=== PATIENT | female | born 1945 | race Caucasian/White ===

== ENCOUNTER 2025-08-07 18:04 | Inpatient (IN) | payer MEDICARE, BC ==
[~2025-08-07] VITALS: Ht 175.3 cm; Wt 60.3 kg
[2025-08-07] MEDS: NITROGLYCERIN OINT 1 GM PACKET TP ONE (18:33)
[2025-08-07 18:37] LABS: PLATELET COUNT (AUTO) 206 K/uL (179-408); RED BLOOD CELL COUNT(AUTO) 4.07 MIL/uL (3.63-4.92); RED CELL DISTRIBUTION WIDTH 12.9 % (12.3-17.7); WHITE BLOOD COUNT (AUTO) 4.8 K/uL (3.8-11.8)
[2025-08-07] MEDS ORDERED: Mobic PO (18:40)
[2025-08-07] MEDS ORDERED: METO-356 PO (18:40)
[2025-08-07] MEDS ORDERED: MULT-1045 PO (18:40)
[2025-08-07] MEDS ORDERED: GABA300C PO ×2 (18:40)
[2025-08-07] MEDS ORDERED: MAGN500C4 PO (18:40)
[2025-08-07] MEDS ORDERED: TRAM50TA2 PO (18:40)
[2025-08-07] MEDS ORDERED: CHOL200026 PO (18:40)
[2025-08-07] MEDS ORDERED: [UNRECOGNIZED DRUG - CODE] SQ (18:40)
[2025-08-07] MEDS ORDERED: PLEC3TAB2 PO (18:40)
[2025-08-07] MEDS ORDERED: DICY-17 PO (18:40)
[2025-08-07] MEDS ORDERED: ASPI-866 PO (18:40)
[2025-08-07 18:47] LABS: CREATININE 0.8 mg/dL (0.6-1.3); SODIUM SERUM 142 mmol/L (136-145); UREA NITROGEN, BLOOD 15 mg/dL (7-18)
[2025-08-07 18:53] LABS: ASPARTATE AMINOTRANSFERASE 21 U/L (15-37); TOTAL PROTEIN, SERUM 6.6 g/dL (6.4-8.2)
[2025-08-07] MEDS ORDERED: GABAPENTIN 300 MG CAPSULE ONE (21:03)
[2025-08-07] MEDS: GABAPENTIN 300 MG CAPSULE PO ONE (21:05)
[2025-08-07 21:12] VITALS: BP 131/63
[2025-08-07] MEDS ORDERED: REMEDY ESSENTIAL ZINC PASTE 113 GM TP PRN (21:15)
[2025-08-07] MEDS ORDERED: ONDANSETRON 4 MG/2 ML VIAL IV PRN (21:15)
[2025-08-07 22:14] VITALS: BP 139/53; TEMP 98; O2SAT 98
[2025-08-07] MEDS: ENOXAPARIN SODIUM 40 MG/0.4 ML DISP.SYRIN SQ SCH (23:36)
[2025-08-08 00:15] VITALS: BP 99/37; TEMP 97.5; O2SAT 98
[2025-08-08 05:22] VITALS: BP 100/47; TEMP 97.8; O2SAT 95
[2025-08-08 06:29] LABS: PLATELET COUNT (AUTO) 194 K/uL (179-408); RED BLOOD CELL COUNT(AUTO) 3.87 MIL/uL (3.63-4.92); RED CELL DISTRIBUTION WIDTH 13.1 % (12.3-17.7); WHITE BLOOD COUNT (AUTO) 5.4 K/uL (3.8-11.8)
[2025-08-08 06:48] LABS: CREATININE 0.8 mg/dL (0.6-1.3); SODIUM SERUM 145 mmol/L (136-145); UREA NITROGEN, BLOOD 13 mg/dL (7-18)
[2025-08-08] MEDS: GABAPENTIN 300 MG CAPSULE PO SCH ×2 (08:53→18:08)
[2025-08-08] MEDS: ASPIRIN EC 81 MG TABLET.DR PO SCH (08:53)
[2025-08-08] MEDS: TRAMADOL HCL 50 MG TABLET PO ONE (08:54)
[2025-08-08] MEDS ORDERED: METOPROLOL SUCCINATE XL 25 MG TAB.SR.24H PO SCH (09:00)
[2025-08-08] MEDS ORDERED: MELO-105 PO (09:58)
[2025-08-08] MEDS ORDERED: COMPOUNDED MED VG (10:01)
[2025-08-08] MEDS ORDERED: [UNRECOGNIZED DRUG - OTHER] VG (10:03)
[2025-08-08 10:46] LABS: *BILIRUBIN,URIN NEGATIVE (NEGATIVE); *BLOOD, URINE NEGATIVE (NEGATIVE); *CLARITY,URINE CLEAR (CLEAR); *COLOR,URINE YELLOW (YELLOW); *KETONES,URINE NEGATIVE (NEGATIVE); *PROTEIN,URINE NEGATIVE (NEGATIVE); *UROBILINOGEN,URINE 0.2 E.U./dl (NORMAL); LEUKOCYTE ESTERASE ,URINE NEGATIVE (NEGATIVE); NITRITE, URINE NEGATIVE (NEGATIVE); UGLUCOSE NEGATIVE (NEGATIVE)
[2025-08-08 10:55] VITALS: BP 141/57; TEMP 97.6; O2SAT 98
[2025-08-08] MEDS: METOPROLOL SUCCINATE XL 25 MG TAB.SR.24H PO SCH (11:34)
[2025-08-08] MEDS: ACETAMINOPHEN 325 MG TABLET PO PRN (14:16)
[2025-08-08] MEDS: TRAMADOL HCL 50 MG TABLET PO PRN (16:54)
[2025-08-08] MEDS ORDERED: COMPOUNDED CREAM TOP (17:50)
[2025-08-08 19:16] VITALS: BP 145/52; TEMP 97.5; O2SAT 95
[2025-08-09 00:04] VITALS: BP 120/47; TEMP 97.5; O2SAT 95
[2025-08-09 05:13] VITALS: BP 110/52; TEMP 97.6; O2SAT 96
[2025-08-09 08:00] VITALS: BP 123/61; TEMP 97.6; O2SAT 96
[2025-08-09 12:00] VITALS: BP 113/65; TEMP 97.5; O2SAT 98
[2025-08-09 16:25] VITALS: BP 143/58; TEMP 97.9; O2SAT 98
== END 2025-08-09 18:15 | disposition home or self-care (01) | DRG 311 ==
LOC: ER 18:04 → TELE3 21:27
PROVIDERS: ADMIT Internal Medicine; ATTEND Internal Medicine
DX: I20.0 Unstable angina (principal); G62.9 Polyneuropathy, unspecified; I10 Essential (primary) hypertension; Z96.643 Presence of artificial hip joint, bilateral; Z88.5 Allergy status to narcotic agent; Z88.1 Allergy status to other antibiotic agents; Z79.82 Long term (current) use of aspirin; K59.09 Other constipation; I49.3 Ventricular premature depolarization; Z79.899 Other long term (current) drug therapy; Z87.828 Personal history of other (healed) physical injury and trauma; G89.29 Other chronic pain
CPT/HCPCS: 36415; 71045; 83735; 84100; 84484; 85025; 85730; 87086; 93005; 93307; G0378; J1650